=== PATIENT | male | born 1970 | race African-American/Black ===

== ENCOUNTER 2020-09-25 15:02 | Inpatient (IN) | payer MEDICAID, OTHER ==
[~2020-09-25] VITALS: Ht 185.4 cm; Wt 83.1 kg
[2020-09-25] MEDS ORDERED: methylPREDNISolone SOD SUCC 125 MG/2 ML VL IV ONE (16:00)
[2020-09-25] MEDS ORDERED: ONDANSETRON HCL 4 MG/2 ML VIAL IV ONE (16:30)
[2020-09-25] MEDS ORDERED: REMDESIVIR PER PHARMACY 0 ML IV SCH (17:00)
[2020-09-25] MEDS ORDERED: AZITHROMYCIN 500MG/ 250ML 250 ML IV ONE (17:00)
[2020-09-25] MEDS ORDERED: MORPHINE SULFATE 4 MG/ML SYR/VIAL IV ONE (17:00)
[2020-09-25] MEDS ORDERED: CHOLECALCIFEROL (VITD3) 2,000 UNIT CAP/TAB PO ONE (17:00)
[2020-09-25] MEDS ORDERED: ZINC SULFATE 220mg CAP or TAB PO ONE (17:00)
[2020-09-25] MEDS ORDERED: ASCORBIC ACID 500 MG TAB PO ONE (17:00)
[2020-09-25 17:20] LABS: Basophils # (auto) 0 10 ^3/uL (0-0.2); Basophils % (auto) 0.4 % (0.0-2.0); Eosinophils # (auto) 0 10 ^3/uL (0-0.8); Hematocrit 43.7 % (41.0-53.0); Lymphocytes # (auto) 0.9 10 ^3/uL (0.4-5.4); Lymphocytes % (auto) 12.5 % (10.0-50.0); Mean Corpuscular Hemoglobin 30.2 pg (28.0-32.0); Mean Corpuscular Hgb Conc. 34.4 g/dL (32.0-36.0); Mean Corpuscular Volume 87.8 fL (80.0-100.0); Monocytes # (auto) 0.7 10 ^3/uL (0-1.3); Monocytes % (auto) 8.9 % (0.0-12.0); Neutrophils # (auto) 5.7 10 ^3/uL (1.6-8.6); Neutrophils % (auto) 78.2 % (37.0-80.0); Nucleated Red Blood Cells % 0.3 %; Platelet Count (auto) 286 10^3/uL (140-450); Red Blood Cells 4.98 10^6/uL (4.5-5.90); Red Cell Distribution Width 12.5 % (11.8-14.3); White Blood Cell 7.3 10^3/uL (4.4-10.8)
[2020-09-25] MEDS ORDERED: PROCHLORPERAZINE EDISYLATE 5 MG/ML 2ML VIAL ONE (17:27)
[2020-09-25] MEDS ORDERED: MORPHINE SULF INJ 2 MG/ML SYRINGE 1ML IV PRN (17:30)
[2020-09-25] MEDS ORDERED: NITROGLYCERIN 0.4 MG SL TAB SL PRN (17:30)
[2020-09-25 17:32] LABS: Albumin 2.8 g/dL (3.4-5.0); Anion Gap 8 (5-15); Blood Urea Nitrogen 31 mg/dL (7-18); Calcium 8.5 mg/dL (8.5-10.1); Carbon Dioxide 27 mmol/L (21-32); Chloride 90 mmol/L (98-107); Potassium 4.8 mmol/L (3.5-5.1); Sodium 125 mmol/L (136-145)
[2020-09-25 17:43] LABS: Alanine Aminotransferase 43 U/L (16-61); Alkaline Phosphatase 92 U/L (45-117); Aspartate Aminotransferase 36 U/L (15-37); Bilirubin, Total 0.6 mg/dL (0.2-1.0); GFR African American 75 mL/min; GFR Non-African American 62 mL/min; Glucose 242 mg/dL (74-106); Total Protein 8.5 g/dL (6.4-8.2)
[2020-09-25 17:45] LABS: CRP High Sensitivity > 19.0 mg/dL (< 0.3)
[2020-09-25] MEDS ORDERED: PROCHLORPERAZINE EDISYLATE 5 MG/ML 2ML VIAL IV ONE (17:45)
[2020-09-25] MEDS ORDERED: PANTOPRAZOLE 40 MG/10 ML VIAL INJ IV ONE ×2 (17:53→18:00)
[2020-09-25 20:00] VITALS: BP 104/69
[2020-09-25] MEDS ORDERED: REMDESIVIR 200 MG in NS 210ml LOADING DOSE ADULT IV ONE (20:00)
[2020-09-26] VITALS: BP 104/69
[2020-09-26] MEDS ORDERED: MORPHINE SULF INJ 2 MG/ML SYRINGE 1ML IV PRN ×2
[2020-09-26] MEDS ORDERED: LORazepam 0.5 MG TAB PO PRN
[2020-09-26] MEDS ORDERED: REMDESIVIR PER PHARMACY 0 ML IV SCH
[2020-09-26] MEDS ORDERED: ONDANSETRON HCL 4 MG/2 ML VIAL IV PRN
[2020-09-26] MEDS ORDERED: NITROGLYCERIN 0.4 MG SL TAB SL PRN
[2020-09-26] MEDS ORDERED: ALUM & MAG HYDROX-SIMETH LIQ(MAALOX) 30 ML PO PRN
[2020-09-26] MEDS ORDERED: hydrALAZINE HCL 20 MG/ML VL IV PRN (00:15)
[2020-09-26] MEDS ORDERED: DEXTROSE (50%) 50ML SYRG IV PRN (00:15)
[2020-09-26] MEDS: HYDROcodone-ACET 5/325MG TAB PO PRN (00:43)
[2020-09-26] MEDS: SODIUM CHLORIDE 0.9% 1,000 ML IV SCH ×2 (02:24→17:10)
[2020-09-26 03:17] LABS: Basophils # (auto) 0 10 ^3/uL (0-0.2); Basophils % (auto) 0.2 % (0.0-2.0); Eosinophils # (auto) 0 10 ^3/uL (0-0.8); Hematocrit 39.2 % (41.0-53.0); Hemoglobin 13.7 g/dL (13.5-17.5); Lymphocytes # (auto) 0.3 10 ^3/uL (0.4-5.4); Lymphocytes % (auto) 7.2 % (10.0-50.0); Mean Corpuscular Hemoglobin 30.9 pg (28.0-32.0); Mean Corpuscular Hgb Conc. 34.9 g/dL (32.0-36.0); Mean Corpuscular Volume 88.5 fL (80.0-100.0); Monocytes # (auto) 0.1 10 ^3/uL (0-1.3); Neutrophils % (auto) 89.6 % (37.0-80.0); Nucleated Red Blood Cells % 0.2 %; Platelet Count (auto) 270 10^3/uL (140-450); Red Blood Cells 4.42 10^6/uL (4.5-5.90); Red Cell Distribution Width 12.8 % (11.8-14.3); White Blood Cell 4.5 10^3/uL (4.4-10.8)
[2020-09-26 03:54] LABS: Albumin 2.5 g/dL (3.4-5.0); BUN/Creatinine Ratio 29.8; Calcium 8.1 mg/dL (8.5-10.1); Magnesium 2.2 mg/dL (1.6-2.6); Potassium 5.1 mmol/L (3.5-5.1)
[2020-09-26 03:55] LABS: Cholesterol 148 mg/dL (< 200)
[2020-09-26 04:00] LABS: HDL Cholesterol 29 mg/dL (40-59); LDL Cholesterol 93 mg/dL (< 100); Triglycerides 132 mg/dL (< 150)
[2020-09-26 04:01] LABS: Bilirubin, Total 0.4 mg/dL (0.2-1.0); Total Protein 7.5 g/dL (6.4-8.2)
[2020-09-26 05:50] LABS: CRP High Sensitivity 21.16 mg/dL (< 0.3)
[2020-09-26] MEDS: BUDESONIDE (INHALATION) 180 MCG IH IN SCH ×2 (06:27→19:18)
[2020-09-26] MEDS: FUROSEMIDE 20 MG/2 ML VIAL IV SCH ×2 (06:28→17:50)
[2020-09-26] MEDS: ACCU-CHEK COMFORT CURVE STRIP VI SCH ×4 (06:29→21:18)
[2020-09-26] MEDS: InsuLIN REG 1unit/0.01ml Soln (100units/ml) SC SCH ×4 (06:32→21:21)
[2020-09-26 08:00] VITALS: BP 116/81
[2020-09-26] MEDS: DexAMETHasone SOD PHOS 10MG/1ML VIAL INJ IV SCH (09:21)
[2020-09-26] MEDS: DOXYCYCLINE 100MG/250ML 250 ML IV SCH ×2 (09:22→21:17)
[2020-09-26] MEDS: POTASSIUM CHL 10 Meq TABLET PO SCH (09:22)
[2020-09-26] MEDS: ZINC SULFATE 220mg CAP or TAB PO SCH (09:22)
[2020-09-26] MEDS: ASPirin 81 mg TAB PO SCH (09:22)
[2020-09-26] MEDS: PANTOPRAZOLE 40 MG/10 ML VIAL INJ IV SCH (09:22)
[2020-09-26] MEDS: CHOLECALCIFEROL (VITD3) 2,000 UNIT CAP/TAB PO SCH (09:23)
[2020-09-26] MEDS: ENOXAPARIN SOD 40 MG/0.4 ML SYRINGE SC SCH ×2 (09:23→21:18)
[2020-09-26] MEDS: ASCORBIC ACID 1,000 MG TAB PO SCH (09:23)
[2020-09-26] MEDS ORDERED: IVERMECTIN 3 MG TAB PO ONE (10:00)
[2020-09-26 10:39] LABS: Basophils # (auto) 0 10 ^3/uL (0-0.2); Basophils % (auto) 0.1 % (0.0-2.0); Eosinophils # (auto) 0 10 ^3/uL (0-0.8); Hematocrit 42.7 % (41.0-53.0); Hemoglobin 14.7 g/dL (13.5-17.5); Lymphocytes # (auto) 0.4 10 ^3/uL (0.4-5.4); Lymphocytes % (auto) 8.1 % (10.0-50.0); Mean Corpuscular Hemoglobin 30.4 pg (28.0-32.0); Mean Corpuscular Hgb Conc. 34.5 g/dL (32.0-36.0); Monocytes # (auto) 0.4 10 ^3/uL (0-1.3); Neutrophils # (auto) 3.7 10 ^3/uL (1.6-8.6); Neutrophils % (auto) 83.8 % (37.0-80.0); Nucleated Red Blood Cells % 0.5 %; Platelet Count (auto) 270 10^3/uL (140-450); Red Blood Cells 4.85 10^6/uL (4.5-5.90); Red Cell Distribution Width 12.7 % (11.8-14.3); White Blood Cell 4.5 10^3/uL (4.4-10.8)
[2020-09-26 11:00] LABS: Potassium 4.9 mmol/L (3.5-5.1)
[2020-09-26 11:05] LABS: Albumin 2.6 g/dL (3.4-5.0); BUN/Creatinine Ratio 29.5; Bilirubin, Total 0.4 mg/dL (0.2-1.0); Calcium 8.3 mg/dL (8.5-10.1); Magnesium 2.6 mg/dL (1.6-2.6); Phosphorus 4.5 mg/dL (2.5-4.90); Total Protein 8.1 g/dL (6.4-8.2)
[2020-09-26 11:59] LABS: INR 0.98 (0.9-1.15); Partial Thromboplastin Time 28.6 sec (23.0-31.2)
[2020-09-26] MEDS: REMDESIVIR 100mg 100 MG in SODIUM CHL 0.9% 230 ML IV SCH (15:39)
[2020-09-26 16:00] VITALS: BP 133/84
[2020-09-26] MEDS: guaiFENesin-DM 100/10mg/5ml SYR PO PRN (17:50)
[2020-09-26] MEDS: ATORVASTATIN 20 MG TAB PO SCH (21:17)
[2020-09-26] MEDS ORDERED: INSULIN LANTUS (GLARGINE) 1 /0.01ml (100units/ml) SC SCH (22:00)
[2020-09-27] VITALS: BP 123/75
[2020-09-27] MEDS: InsuLIN REG 1unit/0.01ml Soln (100units/ml) SC SCH ×4 (06:04→21:44)
[2020-09-27] MEDS: FUROSEMIDE 20 MG/2 ML VIAL IV SCH ×2 (06:15→18:00)
[2020-09-27] MEDS: ACCU-CHEK COMFORT CURVE STRIP VI SCH ×4 (06:15→21:42)
[2020-09-27 07:20] LABS: Albumin 2.5 g/dL (3.4-5.0); Calcium 8.5 mg/dL (8.5-10.1); Potassium 4.6 mmol/L (3.5-5.1)
[2020-09-27 07:23] LABS: BUN/Creatinine Ratio 36.8; Bilirubin, Total 0.5 mg/dL (0.2-1.0); Total Protein 7.7 g/dL (6.4-8.2)
[2020-09-27 08:00] VITALS: BP 119/70
[2020-09-27] MEDS: BUDESONIDE (INHALATION) 180 MCG IH IN SCH ×2 (09:01→18:52)
[2020-09-27] MEDS: SODIUM CHLORIDE 0.9% 1,000 ML IV SCH (09:01)
[2020-09-27] MEDS: DexAMETHasone SOD PHOS 10MG/1ML VIAL INJ IV SCH (09:01)
[2020-09-27] MEDS: DOXYCYCLINE 100MG/250ML 250 ML IV SCH ×2 (09:02→21:41)
[2020-09-27] MEDS: ASPirin 81 mg TAB PO SCH (09:02)
[2020-09-27] MEDS: ZINC SULFATE 220mg CAP or TAB PO SCH (09:02)
[2020-09-27] MEDS: PANTOPRAZOLE 40 MG/10 ML VIAL INJ IV SCH (09:02)
[2020-09-27] MEDS: POTASSIUM CHL 10 Meq TABLET PO SCH (09:03)
[2020-09-27] MEDS: CHOLECALCIFEROL (VITD3) 2,000 UNIT CAP/TAB PO SCH (09:03)
[2020-09-27] MEDS: ENOXAPARIN SOD 40 MG/0.4 ML SYRINGE SC SCH ×2 (09:03→21:42)
[2020-09-27] MEDS: ASCORBIC ACID 1,000 MG TAB PO SCH (09:03)
[2020-09-27] MEDS: REMDESIVIR 100mg 100 MG in SODIUM CHL 0.9% 230 ML IV SCH (14:28)
[2020-09-27 16:00] VITALS: BP 117/68
[2020-09-27] MEDS ORDERED: NITROGLYCERIN 0.4 MG SL TAB SL PRN (18:45)
[2020-09-27] MEDS: guaiFENesin-DM 100/10mg/5ml SYR PO PRN (20:10)
[2020-09-27] MEDS: ATORVASTATIN 20 MG TAB PO SCH (21:41)
[2020-09-27] MEDS ORDERED: INSULIN LANTUS (GLARGINE) 1 /0.01ml (100units/ml) SC SCH (22:00)
[2020-09-27] MEDS: HYDROcodone-ACET 5/325MG TAB PO PRN (22:07)
[2020-09-28] VITALS: BP 133/93
[2020-09-28] MEDS: HYDROcodone-ACET 5/325MG TAB PO PRN (05:00)
[2020-09-28] MEDS: ACCU-CHEK COMFORT CURVE STRIP VI SCH ×4 (06:00→22:00)
[2020-09-28] MEDS: InsuLIN REG 1unit/0.01ml Soln (100units/ml) SC SCH ×4 (06:00→22:37)
[2020-09-28] MEDS: BUDESONIDE (INHALATION) 180 MCG IH IN SCH ×2 (06:27→19:13)
[2020-09-28] MEDS: ALBUTEROL SULF HFA 90MCG INH 200DOSE IN PRN (06:27)
[2020-09-28 07:22] LABS: Albumin 2.3 g/dL (3.4-5.0); Calcium 8.2 mg/dL (8.5-10.1); Potassium 4.1 mmol/L (3.5-5.1)
[2020-09-28 07:25] LABS: BUN/Creatinine Ratio 30.2; Bilirubin, Total 0.7 mg/dL (0.2-1.0); Total Protein 7.1 g/dL (6.4-8.2)
[2020-09-28 08:00] VITALS: BP 104/75
[2020-09-28] MEDS: DOXYCYCLINE 100MG/250ML 250 ML IV SCH (09:26)
[2020-09-28] MEDS: ASPirin 81 mg TAB PO SCH (09:26)
[2020-09-28] MEDS: DexAMETHasone SOD PHOS 10MG/1ML VIAL INJ IV SCH (09:26)
[2020-09-28] MEDS: PANTOPRAZOLE 40 MG/10 ML VIAL INJ IV SCH (09:26)
[2020-09-28] MEDS: ENOXAPARIN SOD 40 MG/0.4 ML SYRINGE SC SCH (09:27)
[2020-09-28] MEDS: ASCORBIC ACID 1,000 MG TAB PO SCH (09:27)
[2020-09-28] MEDS: CHOLECALCIFEROL (VITD3) 2,000 UNIT CAP/TAB PO SCH (09:27)
[2020-09-28] MEDS: ZINC SULFATE 220mg CAP or TAB PO SCH (09:27)
[2020-09-28] MEDS ORDERED: ALBUMIN 25% 100 ML IV ONE (11:30)
[2020-09-28] MEDS: ENOXAPARIN SOD 80 MG/0.8ML SYRINGE SC SCH (12:00)
[2020-09-28] MEDS: SODIUM CHLORIDE 0.9% 1,000 ML IV SCH (12:28)
[2020-09-28] MEDS: ALBUMIN 25% 50 ML IV SCH ×2 (15:23→22:53)
[2020-09-28 16:00] VITALS: BP 118/67
[2020-09-28] MEDS: REMDESIVIR 100mg 100 MG in SODIUM CHL 0.9% 230 ML IV SCH (16:20)
[2020-09-28] MEDS: FUROSEMIDE 20 MG TAB PO SCH (18:18)
[2020-09-28] MEDS: guaiFENesin-DM 100/10mg/5ml SYR PO PRN (18:52)
[2020-09-28] MEDS ORDERED: INSULIN LANTUS (GLARGINE) 1 /0.01ml (100units/ml) SC SCH (22:00)
[2020-09-28] MEDS: ATORVASTATIN 20 MG TAB PO SCH (22:33)
[2020-09-29] VITALS: BP 130/75
[2020-09-29] MEDS: ENOXAPARIN SOD 80 MG/0.8ML SYRINGE SC SCH ×3 (00:16→22:32)
[2020-09-29] MEDS: DOXYCYCLINE 100MG/250ML 250 ML IV SCH ×3 (00:16→22:31)
[2020-09-29] MEDS: ALBUMIN 25% 50 ML IV SCH (04:33)
[2020-09-29 06:01] LABS: Basophils # (auto) 0 10 ^3/uL (0-0.2); Basophils % (auto) 0.1 % (0.0-2.0); Eosinophils # (auto) 0 10 ^3/uL (0-0.8); Eosinophils % (auto) 0.8 % (0.0-7.0); Hematocrit 37.9 % (41.0-53.0); Hemoglobin 12.8 g/dL (13.5-17.5); Lymphocytes # (auto) 0.5 10 ^3/uL (0.4-5.4); Lymphocytes % (auto) 9.9 % (10.0-50.0); Mean Corpuscular Hemoglobin 29.8 pg (28.0-32.0); Mean Corpuscular Hgb Conc. 33.6 g/dL (32.0-36.0); Mean Corpuscular Volume 88.7 fL (80.0-100.0); Monocytes # (auto) 0.5 10 ^3/uL (0-1.3); Monocytes % (auto) 9.6 % (0.0-12.0); Neutrophils # (auto) 4.2 10 ^3/uL (1.6-8.6); Neutrophils % (auto) 79.6 % (37.0-80.0); Platelet Count (auto) 296 10^3/uL (140-450); Red Blood Cells 4.27 10^6/uL (4.5-5.90); Red Cell Distribution Width 12.9 % (11.8-14.3); White Blood Cell 5.3 10^3/uL (4.4-10.8)
[2020-09-29 06:24] LABS: INR 1.15 (0.9-1.15); Partial Thromboplastin Time 31.1 sec (23.0-31.2)
[2020-09-29 06:25] LABS: Potassium 4.2 mmol/L (3.5-5.1)
[2020-09-29] MEDS: ACCU-CHEK COMFORT CURVE STRIP VI SCH ×4 (06:28→22:00)
[2020-09-29] MEDS: InsuLIN REG 1unit/0.01ml Soln (100units/ml) SC SCH ×4 (06:29→22:24)
[2020-09-29 06:40] LABS: Albumin 2.8 g/dL (3.4-5.0); BUN/Creatinine Ratio 25.3; Bilirubin, Total 0.6 mg/dL (0.2-1.0); Calcium 8.7 mg/dL (8.5-10.1); Magnesium 2.6 mg/dL (1.6-2.6); Phosphorus 2.6 mg/dL (2.5-4.90); Total Protein 7.2 g/dL (6.4-8.2)
[2020-09-29] MEDS: FUROSEMIDE 20 MG TAB PO SCH ×2 (06:42→18:00)
[2020-09-29 08:00] VITALS: BP 144/85
[2020-09-29] MEDS: DexAMETHasone SOD PHOS 10MG/1ML VIAL INJ IV SCH (08:56)
[2020-09-29] MEDS: SODIUM CHLORIDE 0.9% 1,000 ML IV SCH (08:56)
[2020-09-29] MEDS: ASPirin 81 mg TAB PO SCH (08:57)
[2020-09-29] MEDS: ASCORBIC ACID 1,000 MG TAB PO SCH (08:57)
[2020-09-29] MEDS: PANTOPRAZOLE 40 MG/10 ML VIAL INJ IV SCH (08:57)
[2020-09-29] MEDS: CHOLECALCIFEROL (VITD3) 2,000 UNIT CAP/TAB PO SCH (08:57)
[2020-09-29] MEDS: ZINC SULFATE 220mg CAP or TAB PO SCH (08:57)
[2020-09-29] MEDS: THROAT LOZENGES(CEPASTAT) MT PRN ×2 (09:13→16:51)
[2020-09-29] MEDS: BUDESONIDE (INHALATION) 180 MCG IH IN SCH ×2 (10:00→20:25)
[2020-09-29] MEDS ORDERED: IOHEXOL 350 MG/ML 100ML IJ ONE ×2 (15:17→16:14)
[2020-09-29 16:11] VITALS: BP 128/82
[2020-09-29] MEDS: REMDESIVIR 100mg 100 MG in SODIUM CHL 0.9% 230 ML IV SCH (16:52)
[2020-09-29] MEDS: guaiFENesin-DM 100/10mg/5ml SYR PO PRN (19:00)
[2020-09-29] MEDS: ALBUTEROL SULF HFA 90MCG INH 200DOSE IN PRN (20:26)
[2020-09-29] MEDS: INSULIN LANTUS (GLARGINE) 1 /0.01ml (100units/ml) SC SCH (22:24)
[2020-09-29] MEDS: ATORVASTATIN 20 MG TAB PO SCH (22:32)
[2020-09-30] VITALS: BP 126/76
[2020-09-30] MEDS: SODIUM CHLORIDE 0.9% 1,000 ML IV SCH (03:10)
[2020-09-30 05:20] LABS: Basophils # (auto) 0 10 ^3/uL (0-0.2); Basophils % (auto) 0.2 % (0.0-2.0); Eosinophils # (auto) 0.1 10 ^3/uL (0-0.8); Eosinophils % (auto) 1.6 % (0.0-7.0); Hematocrit 37.8 % (41.0-53.0); Hemoglobin 12.9 g/dL (13.5-17.5); Lymphocytes # (auto) 0.6 10 ^3/uL (0.4-5.4); Lymphocytes % (auto) 7.9 % (10.0-50.0); Mean Corpuscular Hemoglobin 30.2 pg (28.0-32.0); Mean Corpuscular Hgb Conc. 34.2 g/dL (32.0-36.0); Mean Corpuscular Volume 88.2 fL (80.0-100.0); Monocytes # (auto) 0.7 10 ^3/uL (0-1.3); Neutrophils # (auto) 5.8 10 ^3/uL (1.6-8.6); Neutrophils % (auto) 80.3 % (37.0-80.0); Nucleated Red Blood Cells % 0.1 %; Platelet Count (auto) 299 10^3/uL (140-450); Red Blood Cells 4.28 10^6/uL (4.5-5.90); Red Cell Distribution Width 12.8 % (11.8-14.3); White Blood Cell 7.2 10^3/uL (4.4-10.8)
[2020-09-30 05:36] LABS: INR 1.19 (0.9-1.15); Partial Thromboplastin Time 35.3 sec (23.0-31.2)
[2020-09-30 05:40] LABS: Albumin 2.6 g/dL (3.4-5.0); Calcium 8.5 mg/dL (8.5-10.1); Magnesium 2.2 mg/dL (1.6-2.6); Potassium 4.1 mmol/L (3.5-5.1)
[2020-09-30 05:48] LABS: BUN/Creatinine Ratio 27.4; Bilirubin, Total 0.6 mg/dL (0.2-1.0); Phosphorus 2.9 mg/dL (2.5-4.90)
[2020-09-30] MEDS: InsuLIN REG 1unit/0.01ml Soln (100units/ml) SC SCH ×4 (07:00→22:00)
[2020-09-30] MEDS: ACCU-CHEK COMFORT CURVE STRIP VI SCH ×4 (07:06→22:00)
[2020-09-30] MEDS: FUROSEMIDE 20 MG TAB PO SCH ×2 (07:06→18:29)
[2020-09-30] MEDS: BUDESONIDE (INHALATION) 180 MCG IH IN SCH ×2 (07:15→19:20)
[2020-09-30 07:59] VITALS: BP 135/86
[2020-09-30] MEDS: PANTOPRAZOLE 40 MG/10 ML VIAL INJ IV SCH (09:43)
[2020-09-30] MEDS: DexAMETHasone SOD PHOS 10MG/1ML VIAL INJ IV SCH (09:43)
[2020-09-30] MEDS: DOXYCYCLINE 100MG/250ML 250 ML IV SCH ×2 (09:43→22:00)
[2020-09-30] MEDS: CHOLECALCIFEROL (VITD3) 2,000 UNIT CAP/TAB PO SCH (09:44)
[2020-09-30] MEDS: ZINC SULFATE 220mg CAP or TAB PO SCH (09:44)
[2020-09-30] MEDS: ASCORBIC ACID 1,000 MG TAB PO SCH (09:44)
[2020-09-30] MEDS: THROAT LOZENGES(CEPASTAT) MT PRN ×2 (09:54→23:27)
[2020-09-30] MEDS: ENOXAPARIN SOD 80 MG/0.8ML SYRINGE SC SCH (11:40)
[2020-09-30 16:00] VITALS: BP 124/75
[2020-09-30] MEDS: ALBUTEROL SULF HFA 90MCG INH 200DOSE IN PRN (19:43)
[2020-09-30] MEDS: ATORVASTATIN 20 MG TAB PO SCH (22:00)
[2020-09-30] MEDS: APIXABAN 5 MG TAB PO SCH (22:00)
[2020-09-30] MEDS: INSULIN LANTUS (GLARGINE) 1 /0.01ml (100units/ml) SC SCH (23:26)
[2020-10-01] VITALS: BP 131/80
[2020-10-01] MEDS: InsuLIN REG 1unit/0.01ml Soln (100units/ml) SC SCH ×4 (05:31→22:20)
[2020-10-01] MEDS: ACCU-CHEK COMFORT CURVE STRIP VI SCH ×4 (05:33→22:21)
[2020-10-01] MEDS: FUROSEMIDE 20 MG TAB PO SCH ×2 (05:44→17:51)
[2020-10-01] MEDS: BUDESONIDE (INHALATION) 180 MCG IH IN SCH ×2 (06:47→18:57)
[2020-10-01 08:00] VITALS: BP 119/75
[2020-10-01] MEDS: PANTOPRAZOLE 40 MG/10 ML VIAL INJ IV SCH (09:16)
[2020-10-01] MEDS: DexAMETHasone SOD PHOS 10MG/1ML VIAL INJ IV SCH (09:16)
[2020-10-01] MEDS: APIXABAN 5 MG TAB PO SCH ×2 (09:16→22:15)
[2020-10-01] MEDS: ZINC SULFATE 220mg CAP or TAB PO SCH (09:16)
[2020-10-01] MEDS: ASCORBIC ACID 1,000 MG TAB PO SCH (09:17)
[2020-10-01] MEDS: CHOLECALCIFEROL (VITD3) 2,000 UNIT CAP/TAB PO SCH (09:17)
[2020-10-01] MEDS: DOCUSATE SOD 100 MG CAP PO PRN (09:17)
[2020-10-01] MEDS: THROAT LOZENGES(CEPASTAT) MT PRN (09:17)
[2020-10-01] MEDS: guaiFENesin-DM 100/10mg/5ml SYR PO PRN (09:54)
[2020-10-01 15:45] VITALS: BP 141/84
[2020-10-01] MEDS: ALBUTEROL SULF HFA 90MCG INH 200DOSE IN PRN (18:57)
[2020-10-01] MEDS: ATORVASTATIN 20 MG TAB PO SCH (22:17)
[2020-10-01] MEDS: INSULIN LANTUS (GLARGINE) 1 /0.01ml (100units/ml) SC SCH (22:21)
[2020-10-02] VITALS: BP 116/78
[2020-10-02] MEDS: FUROSEMIDE 20 MG TAB PO SCH ×2 (05:41→17:55)
[2020-10-02] MEDS: InsuLIN REG 1unit/0.01ml Soln (100units/ml) SC SCH ×4 (06:10→22:50)
[2020-10-02] MEDS: ALBUTEROL SULF HFA 90MCG INH 200DOSE IN PRN ×2 (06:47→20:39)
[2020-10-02] MEDS: BUDESONIDE (INHALATION) 180 MCG IH IN SCH ×2 (06:47→18:12)
[2020-10-02] MEDS: ACCU-CHEK COMFORT CURVE STRIP VI SCH ×4 (07:00→22:53)
[2020-10-02 08:00] VITALS: BP 120/74
[2020-10-02] MEDS: PANTOPRAZOLE 40 MG/10 ML VIAL INJ IV SCH (09:20)
[2020-10-02] MEDS: ZINC SULFATE 220mg CAP or TAB PO SCH (09:20)
[2020-10-02] MEDS: APIXABAN 5 MG TAB PO SCH ×2 (09:20→22:44)
[2020-10-02] MEDS: DexAMETHasone SOD PHOS 10MG/1ML VIAL INJ IV SCH (09:20)
[2020-10-02] MEDS: CHOLECALCIFEROL (VITD3) 2,000 UNIT CAP/TAB PO SCH (09:21)
[2020-10-02] MEDS: ASCORBIC ACID 1,000 MG TAB PO SCH (09:21)
[2020-10-02] MEDS: THROAT LOZENGES(CEPASTAT) MT PRN ×2 (10:11→20:08)
[2020-10-02] MEDS: DOCUSATE SOD 100 MG CAP PO PRN ×2 (10:11→20:08)
[2020-10-02 15:55] VITALS: BP 120/65
[2020-10-02] MEDS: ATORVASTATIN 20 MG TAB PO SCH (22:44)
[2020-10-02] MEDS: INSULIN LANTUS (GLARGINE) 1 /0.01ml (100units/ml) SC SCH (22:52)
[2020-10-03] VITALS: BP 110/75
[2020-10-03] MEDS: FUROSEMIDE 20 MG TAB PO SCH ×2 (05:55→18:36)
[2020-10-03] MEDS: BUDESONIDE (INHALATION) 180 MCG IH IN SCH ×2 (06:35→19:34)
[2020-10-03] MEDS: ACCU-CHEK COMFORT CURVE STRIP VI SCH ×4 (06:37→21:50)
[2020-10-03] MEDS: InsuLIN REG 1unit/0.01ml Soln (100units/ml) SC SCH ×4 (06:37→22:29)
[2020-10-03 07:32] VITALS: BP 99/60
[2020-10-03] MEDS: CHOLECALCIFEROL (VITD3) 2,000 UNIT CAP/TAB PO SCH (10:00)
[2020-10-03] MEDS: ASCORBIC ACID 1,000 MG TAB PO SCH (10:40)
[2020-10-03] MEDS: DexAMETHasone SOD PHOS 10MG/1ML VIAL INJ IV SCH (10:40)
[2020-10-03] MEDS: PANTOPRAZOLE 40 MG/10 ML VIAL INJ IV SCH (10:40)
[2020-10-03] MEDS: APIXABAN 5 MG TAB PO SCH ×2 (10:41→22:18)
[2020-10-03] MEDS: ZINC SULFATE 220mg CAP or TAB PO SCH (12:04)
[2020-10-03 15:43] VITALS: BP 102/70
[2020-10-03] MEDS ORDERED: guaiFENesin-DM 100/10mg/5ml SYR PO PRN (17:00)
[2020-10-03] MEDS: ALBUTEROL SULF HFA 90MCG INH 200DOSE IN PRN (19:34)
[2020-10-03] MEDS: THROAT LOZENGES(CEPASTAT) MT PRN (21:13)
[2020-10-03] MEDS: ATORVASTATIN 20 MG TAB PO SCH (22:18)
[2020-10-03] MEDS: INSULIN LANTUS (GLARGINE) 1 /0.01ml (100units/ml) SC SCH (22:18)
[2020-10-03] MEDS: HYDROcodone-ACET 5/325MG TAB PO PRN (23:18)
[2020-10-04 00:06] VITALS: BP 97/63
[2020-10-04] MEDS: FUROSEMIDE 20 MG TAB PO SCH ×2 (05:45→18:00)
[2020-10-04 06:03] LABS: Basophils # (auto) 0 10 ^3/uL (0-0.2); Basophils % (auto) 0.3 % (0.0-2.0); Eosinophils # (auto) 0.1 10 ^3/uL (0-0.8); Eosinophils % (auto) 1.2 % (0.0-7.0); Hematocrit 36.9 % (41.0-53.0); Hemoglobin 12.6 g/dL (13.5-17.5); Lymphocytes # (auto) 1.1 10 ^3/uL (0.4-5.4); Lymphocytes % (auto) 11.8 % (10.0-50.0); Mean Corpuscular Hemoglobin 30.3 pg (28.0-32.0); Mean Corpuscular Hgb Conc. 34.2 g/dL (32.0-36.0); Mean Corpuscular Volume 88.8 fL (80.0-100.0); Monocytes # (auto) 1.1 10 ^3/uL (0-1.3); Neutrophils # (auto) 6.8 10 ^3/uL (1.6-8.6); Neutrophils % (auto) 74.7 % (37.0-80.0); Nucleated Red Blood Cells % 0.1 %; Platelet Count (auto) 359 10^3/uL (140-450); Red Blood Cells 4.16 10^6/uL (4.5-5.90); Red Cell Distribution Width 12.6 % (11.8-14.3); White Blood Cell 9.1 10^3/uL (4.4-10.8)
[2020-10-04] MEDS: ACCU-CHEK COMFORT CURVE STRIP VI SCH ×4 (06:15→21:34)
[2020-10-04 06:29] LABS: Potassium 4.5 mmol/L (3.5-5.1)
[2020-10-04 06:32] LABS: INR 1.08 (0.9-1.15); Partial Thromboplastin Time 26.6 sec (23.0-31.2)
[2020-10-04] MEDS: InsuLIN REG 1unit/0.01ml Soln (100units/ml) SC SCH ×4 (06:34→21:42)
[2020-10-04 06:47] LABS: Albumin 2.6 g/dL (3.4-5.0); BUN/Creatinine Ratio 28.7; Calcium 9.3 mg/dL (8.5-10.1); Magnesium 1.9 mg/dL (1.6-2.6)
[2020-10-04 06:56] LABS: Bilirubin, Total 0.5 mg/dL (0.2-1.0); Phosphorus 3.4 mg/dL (2.5-4.90); Total Protein 6.7 g/dL (6.4-8.2)
[2020-10-04] MEDS: ALBUTEROL SULF HFA 90MCG INH 200DOSE IN PRN ×2 (07:10→22:50)
[2020-10-04] MEDS: BUDESONIDE (INHALATION) 180 MCG IH IN SCH ×2 (07:10→22:00)
[2020-10-04 07:56] VITALS: BP 119/73
[2020-10-04] MEDS: ZINC SULFATE 220mg CAP or TAB PO SCH (11:02)
[2020-10-04] MEDS: CHOLECALCIFEROL (VITD3) 2,000 UNIT CAP/TAB PO SCH (11:02)
[2020-10-04] MEDS: PANTOPRAZOLE 40 MG/10 ML VIAL INJ IV SCH (11:03)
[2020-10-04] MEDS: APIXABAN 5 MG TAB PO SCH ×2 (11:03→21:38)
[2020-10-04] MEDS: ASCORBIC ACID 1,000 MG TAB PO SCH (11:03)
[2020-10-04] MEDS: DexAMETHasone SOD PHOS 10MG/1ML VIAL INJ IV SCH (11:04)
[2020-10-04 15:39] VITALS: BP 107/74
[2020-10-04] MEDS: THROAT LOZENGES(CEPASTAT) MT PRN (20:05)
[2020-10-04] MEDS: ATORVASTATIN 20 MG TAB PO SCH (21:38)
[2020-10-04] MEDS: INSULIN LANTUS (GLARGINE) 1 /0.01ml (100units/ml) SC SCH (21:42)
[2020-10-05] VITALS: BP 123/71
[2020-10-05] MEDS: ACCU-CHEK COMFORT CURVE STRIP VI SCH ×4 (05:58→22:01)
[2020-10-05] MEDS: InsuLIN REG 1unit/0.01ml Soln (100units/ml) SC SCH ×4 (06:10→22:13)
[2020-10-05] MEDS: FUROSEMIDE 20 MG TAB PO SCH ×2 (06:10→17:55)
[2020-10-05 08:00] VITALS: BP 100/69
[2020-10-05] MEDS: ASCORBIC ACID 1,000 MG TAB PO SCH (09:41)
[2020-10-05] MEDS: ZINC SULFATE 220mg CAP or TAB PO SCH (09:41)
[2020-10-05] MEDS: APIXABAN 5 MG TAB PO SCH ×2 (09:42→22:01)
[2020-10-05] MEDS: DexAMETHasone SOD PHOS 10MG/1ML VIAL INJ IV SCH (09:42)
[2020-10-05] MEDS: PANTOPRAZOLE 40 MG/10 ML VIAL INJ IV SCH (09:42)
[2020-10-05] MEDS: CHOLECALCIFEROL (VITD3) 2,000 UNIT CAP/TAB PO SCH (09:43)
[2020-10-05 16:00] VITALS: BP 114/73
[2020-10-05] MEDS: DOCUSATE SOD 100 MG CAP PO PRN (17:55)
[2020-10-05] MEDS: ALBUTEROL SULF HFA 90MCG INH 200DOSE IN PRN (21:42)
[2020-10-05] MEDS: BUDESONIDE (INHALATION) 180 MCG IH IN SCH (21:42)
[2020-10-05] MEDS: ATORVASTATIN 20 MG TAB PO SCH (22:01)
[2020-10-05] MEDS: INSULIN LANTUS (GLARGINE) 1 /0.01ml (100units/ml) SC SCH (22:13)
[2020-10-06] VITALS: BP 105/74
[2020-10-06] MEDS: ACCU-CHEK COMFORT CURVE STRIP VI SCH ×2 (05:46→12:32)
[2020-10-06] MEDS: FUROSEMIDE 20 MG TAB PO SCH (05:47)
[2020-10-06] MEDS: BUDESONIDE (INHALATION) 180 MCG IH IN SCH (06:35)
[2020-10-06] MEDS: ALBUTEROL SULF HFA 90MCG INH 200DOSE IN PRN (06:35)
[2020-10-06] MEDS: InsuLIN REG 1unit/0.01ml Soln (100units/ml) SC SCH ×2 (06:41→12:32)
[2020-10-06 08:00] VITALS: BP 110/67
[2020-10-06] MEDS: ASCORBIC ACID 1,000 MG TAB PO SCH (09:32)
[2020-10-06] MEDS: PANTOPRAZOLE 40 MG/10 ML VIAL INJ IV SCH (09:32)
[2020-10-06] MEDS: DexAMETHasone SOD PHOS 10MG/1ML VIAL INJ IV SCH (09:32)
[2020-10-06] MEDS: CHOLECALCIFEROL (VITD3) 2,000 UNIT CAP/TAB PO SCH (09:32)
[2020-10-06] MEDS: ZINC SULFATE 220mg CAP or TAB PO SCH (09:33)
[2020-10-06] MEDS: APIXABAN 5 MG TAB PO SCH (09:33)
[2020-10-06 13:53] VITALS: BP 110/67
[2020-10-06] MEDS: DOCUSATE SOD 100 MG CAP PO PRN (15:47)
[2020-10-07] MEDS ORDERED: APIXABAN 5 MG TAB PO SCH (22:00)
== END 2020-10-06 16:00 | disposition home or self-care (01) | DRG 720 ==
LOC: ER 15:02 → TELE 15:03 → TELE-WESTW 19:40
PROVIDERS: ADMIT Hospitalist; ATTEND Family Medicine
PROC: XW033E5 Introduction of Remdesivir Anti-infective into Peripheral Vein, Percutaneous Approach, New Technology Group 5 (ICD-10-PCS; principal; 2020-09-25)
DX: A41.89 Other specified sepsis (principal); U07.1 COVID-19; J96.01 Acute respiratory failure with hypoxia; I26.99 Other pulmonary embolism without acute cor pulmonale; J12.82 Pneumonia due to coronavirus disease 2019; R65.20 Severe sepsis without septic shock; E44.0 Moderate protein-calorie malnutrition; E87.1 Hypo-osmolality and hyponatremia; R19.7 Diarrhea, unspecified; E11.65 Type 2 diabetes mellitus with hyperglycemia; E88.09 Other disorders of plasma-protein metabolism, not elsewhere classified; E55.9 Vitamin D deficiency, unspecified; E78.5 Hyperlipidemia, unspecified; I10 Essential (primary) hypertension; K21.9 Gastro-esophageal reflux disease without esophagitis; K29.70 Gastritis, unspecified, without bleeding; Z79.01 Long term (current) use of anticoagulants; Z79.899 Other long term (current) drug therapy; Z79.891 Long term (current) use of opiate analgesic; Z79.4 Long term (current) use of insulin
CPT/HCPCS: 36415; 71045; 71275; 74176; 80053; 80061; 82306; 82728; 82962; 83036; 83605; 83615; 83690; 83735; 83880; 84100; 84443; 84484; 85025; 85379; 85610; 85730; 86141; 86850; 86900; 86901; 87040; 87426; 87804; 93005; 93970; 94640; 96365; 96375; C9113; G0378; J1100; J1815; J2405; J3490; P9047

== ENCOUNTER 2020-10-08 12:04 | Emergency (ER) | payer SELFPAY ==
[~2020-10-08] VITALS: Ht 182.9 cm; Wt 81.6 kg
[2020-10-08] MEDS ORDERED: InsuLIN REG 1unit/0.01ml Soln (100units/ml) IV ONE (12:15)
[2020-10-08] MEDS ORDERED: SODIUM CHLORIDE 0.9% 1,000 ML IV ONE ×2 (12:15)
[2020-10-08 12:55] LABS: Basophils # (auto) 0.1 10 ^3/uL (0-0.2); Eosinophils # (auto) 0.1 10 ^3/uL (0-0.8); Eosinophils % (auto) 1.8 % (0.0-7.0); Hematocrit 38.1 % (41.0-53.0); Hemoglobin 12.7 g/dL (13.5-17.5); Lymphocytes # (auto) 1.1 10 ^3/uL (0.4-5.4); Lymphocytes % (auto) 13.5 % (10.0-50.0); Mean Corpuscular Hemoglobin 30.1 pg (28.0-32.0); Mean Corpuscular Hgb Conc. 33.3 g/dL (32.0-36.0); Mean Corpuscular Volume 90.4 fL (80.0-100.0); Monocytes # (auto) 0.8 10 ^3/uL (0-1.3); Monocytes % (auto) 9.8 % (0.0-12.0); Neutrophils # (auto) 6.3 10 ^3/uL (1.6-8.6); Neutrophils % (auto) 73.9 % (37.0-80.0); Platelet Count (auto) 374 10^3/uL (140-450); Red Blood Cells 4.21 10^6/uL (4.5-5.90); Red Cell Distribution Width 12.9 % (11.8-14.3); White Blood Cell 8.5 10^3/uL (4.4-10.8)
[2020-10-08 13:04] LABS: Albumin 2.7 g/dL (3.4-5.0); Anion Gap 6 (5-15); Blood Urea Nitrogen 29 mg/dL (7-18); Calcium 8.5 mg/dL (8.5-10.1); Carbon Dioxide 29 mmol/L (21-32); Chloride 98 mmol/L (98-107); Glucose 298 mg/dL (74-106); Potassium 4.2 mmol/L (3.5-5.1); Sodium 133 mmol/L (136-145)
[2020-10-08 13:09] LABS: Alanine Aminotransferase 31 U/L (16-61); Alkaline Phosphatase 67 U/L (45-117); Aspartate Aminotransferase 12 U/L (15-37); BUN/Creatinine Ratio 25.7; Bilirubin, Total 0.4 mg/dL (0.2-1.0); GFR African American 88 mL/min; GFR Non-African American 72 mL/min; Total Protein 7.2 g/dL (6.4-8.2)
[2020-10-08 13:51] VITALS: BP 138/72
== END 2020-10-08 13:54 | disposition left against medical advice (07) ==
LOC: ER 12:04
DX: E11.65 Type 2 diabetes mellitus with hyperglycemia (principal); Z88.6 Allergy status to analgesic agent
CPT/HCPCS: 36415; 71046; 80053; 84484; 85025; 96360; 99284; J7030

== ENCOUNTER 2020-10-21 09:36 | Inpatient (IN) | payer MEDICAID, OTHER ==
[~2020-10-21] VITALS: Ht 182.9 cm; Wt 86.1 kg
[2020-10-21 10:52] LABS: Basophils # (auto) 0.1 10 ^3/uL (0-0.2); Basophils % (auto) 1.3 % (0.0-2.0); Eosinophils # (auto) 0.1 10 ^3/uL (0-0.8); Eosinophils % (auto) 1.3 % (0.0-7.0); Hematocrit 31.5 % (41.0-53.0); Hemoglobin 10.4 g/dL (13.5-17.5); Lymphocytes # (auto) 1.3 10 ^3/uL (0.4-5.4); Lymphocytes % (auto) 15.4 % (10.0-50.0); Mean Corpuscular Volume 90.9 fL (80.0-100.0); Monocytes # (auto) 0.7 10 ^3/uL (0-1.3); Monocytes % (auto) 8.2 % (0.0-12.0); Neutrophils # (auto) 6.1 10 ^3/uL (1.6-8.6); Neutrophils % (auto) 73.8 % (37.0-80.0); Red Blood Cells 3.46 10^6/uL (4.5-5.90); Red Cell Distribution Width 13.4 % (11.8-14.3); White Blood Cell 8.2 10^3/uL (4.4-10.8)
[2020-10-21 11:06] LABS: Albumin 3.1 g/dL (3.4-5.0); Anion Gap 5 (5-15); Blood Urea Nitrogen 19 mg/dL (7-18); Calcium 8.5 mg/dL (8.5-10.1); Carbon Dioxide 28 mmol/L (21-32); Chloride 104 mmol/L (98-107); Glucose 178 mg/dL (74-106); Magnesium 2.1 mg/dL (1.6-2.6); Potassium 4.7 mmol/L (3.5-5.1); Sodium 137 mmol/L (136-145)
[2020-10-21 11:13] LABS: Alanine Aminotransferase 37 U/L (16-61); Alkaline Phosphatase 66 U/L (45-117); Aspartate Aminotransferase 28 U/L (15-37); Bilirubin, Total 0.5 mg/dL (0.2-1.0); GFR African American 101 mL/min; GFR Non-African American 83 mL/min
[2020-10-21] MEDS ORDERED: levoFLOXacin 750MG 150 ML IV ONE (11:15)
[2020-10-21] MEDS ORDERED: MORPHINE SULFATE INJECTION 2 MG/ML SYRG IV ONE (12:00)
[2020-10-21 12:14] LABS: Urine Bacteria NONE SEEN /hpf (None Seen); Urine Blood Negative /uL (Negative); Urine Specific Gravity 1.007 (1.001-1.035); Urine WBC 1 /hpf (0 - 3)
[2020-10-21] MEDS ORDERED: ONDANSETRON HCL 4 MG/2 ML VIAL IV PRN (13:30)
[2020-10-21] MEDS ORDERED: MORPHINE SULFATE INJECTION 2 MG/ML SYRG IV PRN ×2 (13:30)
[2020-10-21] MEDS ORDERED: methylPREDNISolone SOD SUCC 125 MG/2 ML VL IV ONE (13:30)
[2020-10-21] MEDS ORDERED: DEXTROSE (50%) 50ML SYRG IV PRN (13:30)
[2020-10-21] MEDS ORDERED: HYDROcodone-ACET 5/325MG TAB PO PRN (13:30)
[2020-10-21] MEDS ORDERED: ACETAMINOPHEN 325 MG TAB PO PRN (13:30)
[2020-10-21] MEDS ORDERED: NITROGLYCERIN 0.4 MG SL TAB SL PRN (13:30)
[2020-10-21] MEDS ORDERED: methylPREDNISolone SOD SUCC 125 MG/2 ML VL ONE (13:43)
[2020-10-21 14:14] VITALS: BP 126/79
[2020-10-21 14:19] LABS: CRP High Sensitivity 2.86 mg/dL (< 0.3)
[2020-10-21 17:18] VITALS: BP 150/98
[2020-10-21] MEDS: ACCU-CHEK COMFORT CURVE STRIP VI SCH ×2 (17:25→22:26)
[2020-10-21] MEDS: InsuLIN REG 1unit/0.01ml Soln (100units/ml) SC SCH ×2 (17:36→22:28)
[2020-10-21] MEDS ORDERED: APIX5TAB PO (18:24)
[2020-10-21] MEDS ORDERED: ALBUAER3 IN (18:24)
[2020-10-21] MEDS: BUDESONIDE (INHALATION) 180 MCG IH IN SCH (19:38)
[2020-10-21] MEDS: ALBUTEROL SULF HFA 90MCG INH 200DOSE IN PRN (20:11)
[2020-10-21 22:00] VITALS: BP 150/99
[2020-10-21] MEDS: APIXABAN 5 MG TAB PO SCH (22:27)
[2020-10-22] VITALS (7 sets, daily range): BP systolic 135–145; BP diastolic 86–98
[2020-10-22 06:30] LABS: Basophils # (auto) 0.1 10 ^3/uL (0-0.2); Basophils % (auto) 1.3 % (0.0-2.0); Eosinophils # (auto) 0 10 ^3/uL (0-0.8); Lymphocytes # (auto) 0.9 10 ^3/uL (0.4-5.4); Lymphocytes % (auto) 14.8 % (10.0-50.0); Mean Corpuscular Hemoglobin 30.8 pg (28.0-32.0); Mean Corpuscular Hgb Conc. 34.2 g/dL (32.0-36.0); Monocytes # (auto) 0.5 10 ^3/uL (0-1.3); Monocytes % (auto) 7.9 % (0.0-12.0); Neutrophils # (auto) 4.8 10 ^3/uL (1.6-8.6); Nucleated Red Blood Cells % 0.2 %; Red Blood Cells 3.56 10^6/uL (4.5-5.90); Red Cell Distribution Width 13.2 % (11.8-14.3); White Blood Cell 6.3 10^3/uL (4.4-10.8)
[2020-10-22] MEDS: ACCU-CHEK COMFORT CURVE STRIP VI SCH ×4 (06:31→22:00)
[2020-10-22] MEDS: InsuLIN REG 1unit/0.01ml Soln (100units/ml) SC SCH ×4 (06:34→23:36)
[2020-10-22 06:46] LABS: Albumin 2.8 g/dL (3.4-5.0); Calcium 8.5 mg/dL (8.5-10.1)
[2020-10-22 06:49] LABS: BUN/Creatinine Ratio 18.1; Bilirubin, Total 0.4 mg/dL (0.2-1.0); Total Protein 7.4 g/dL (6.4-8.2)
[2020-10-22] MEDS: BUDESONIDE (INHALATION) 180 MCG IH IN SCH ×2 (07:58→19:36)
[2020-10-22] MEDS ORDERED: INSULIN LANTUS (GLARGINE) 1 /0.01ml (100units/ml) SC SCH (10:00)
[2020-10-22] MEDS ORDERED: ZINC SULFATE 220mg CAP or TAB PO SCH (10:00)
[2020-10-22] MEDS ORDERED: ASCORBIC ACID 1,000 MG TAB PO SCH (10:00)
[2020-10-22] MEDS: FAMOTIDINE 20 MG TAB PO SCH (10:34)
[2020-10-22] MEDS: APIXABAN 5 MG TAB PO SCH ×2 (10:34→22:11)
[2020-10-22] MEDS: CHOLECALCIFEROL (VITD3) 2,000 UNIT CAP/TAB PO SCH (10:34)
[2020-10-22] MEDS ORDERED: INSULIN LANTUS (GLARGINE) 1 /0.01ml (100units/ml) SC ONE (11:45)
[2020-10-22] MEDS ORDERED: FUROSEMIDE 40 MG TAB PO ONE (11:45)
[2020-10-22] MEDS: ALBUTEROL SULF HFA 90MCG INH 200DOSE IN PRN (23:17)
[2020-10-23] MEDS ORDERED: THROAT LOZENGES(CEPASTAT) MT PRN (00:30)
[2020-10-23 05:18] VITALS: BP 137/90
[2020-10-23] MEDS: ACCU-CHEK COMFORT CURVE STRIP VI SCH ×4 (06:40→22:03)
[2020-10-23] MEDS: InsuLIN REG 1unit/0.01ml Soln (100units/ml) SC SCH ×4 (06:40→22:03)
[2020-10-23] MEDS: ALBUTEROL SULF HFA 90MCG INH 200DOSE IN PRN ×2 (07:40→19:24)
[2020-10-23] MEDS: BUDESONIDE (INHALATION) 180 MCG IH IN SCH ×2 (07:40→19:24)
[2020-10-23 09:00] VITALS: BP 146/87
[2020-10-23] MEDS: FAMOTIDINE 20 MG TAB PO SCH (09:32)
[2020-10-23] MEDS: CHOLECALCIFEROL (VITD3) 2,000 UNIT CAP/TAB PO SCH (09:32)
[2020-10-23] MEDS: APIXABAN 5 MG TAB PO SCH ×2 (09:32→22:01)
[2020-10-23] MEDS: INSULIN LANTUS (GLARGINE) 1 /0.01ml (100units/ml) SC SCH (09:42)
[2020-10-23] MEDS ORDERED: FUROSEMIDE 20 MG/2 ML VIAL IV ONE (11:45)
[2020-10-23 13:00] VITALS: BP 114/76
[2020-10-23 16:16] VITALS: BP 143/99
[2020-10-23 20:00] VITALS: BP 132/88
[2020-10-23 22:00] VITALS: BP 132/88
[2020-10-24 05:00] VITALS: BP 109/69
[2020-10-24] MEDS: ACCU-CHEK COMFORT CURVE STRIP VI SCH ×4 (06:37→21:53)
[2020-10-24] MEDS: InsuLIN REG 1unit/0.01ml Soln (100units/ml) SC SCH ×4 (06:38→22:02)
[2020-10-24] MEDS: ALBUTEROL SULF HFA 90MCG INH 200DOSE IN PRN ×3 (07:24→18:48)
[2020-10-24] MEDS: BUDESONIDE (INHALATION) 180 MCG IH IN SCH ×2 (07:24→18:48)
[2020-10-24 07:43] LABS: Calcium 9.3 mg/dL (8.5-10.1); Potassium 4.2 mmol/L (3.5-5.1)
[2020-10-24 07:45] LABS: BUN/Creatinine Ratio 18.7
[2020-10-24] MEDS: CHOLECALCIFEROL (VITD3) 2,000 UNIT CAP/TAB PO SCH (08:38)
[2020-10-24] MEDS: APIXABAN 5 MG TAB PO SCH ×2 (08:39→22:01)
[2020-10-24] MEDS: FAMOTIDINE 20 MG TAB PO SCH (08:39)
[2020-10-24 09:00] VITALS: BP 135/89
[2020-10-24] MEDS: INSULIN LANTUS (GLARGINE) 1 /0.01ml (100units/ml) SC SCH (11:05)
[2020-10-24 13:00] VITALS: BP 127/87
[2020-10-24 17:00] VITALS: BP 124/84
[2020-10-24] MEDS ORDERED: levoFLOXacin 500 MG TAB PO ONE (18:15)
[2020-10-24 22:00] VITALS: BP 137/94
[2020-10-25 05:19] VITALS: BP 123/86
[2020-10-25] MEDS: ACCU-CHEK COMFORT CURVE STRIP VI SCH ×2 (06:28→11:06)
[2020-10-25] MEDS: InsuLIN REG 1unit/0.01ml Soln (100units/ml) SC SCH ×2 (06:28→11:13)
[2020-10-25] MEDS: BUDESONIDE (INHALATION) 180 MCG IH IN SCH (06:50)
[2020-10-25] MEDS: ALBUTEROL SULF HFA 90MCG INH 200DOSE IN PRN (06:50)
[2020-10-25] MEDS: CHOLECALCIFEROL (VITD3) 2,000 UNIT CAP/TAB PO SCH (08:36)
[2020-10-25] MEDS: APIXABAN 5 MG TAB PO SCH (08:36)
[2020-10-25] MEDS: FAMOTIDINE 20 MG TAB PO SCH (08:36)
[2020-10-25 09:00] VITALS: BP 106/72
[2020-10-25 09:06] VITALS: BP 128/84
[2020-10-25] MEDS ORDERED: levoFLOXacin 500 MG TAB PO SCH (10:00)
[2020-10-25] MEDS ORDERED: INSUINJ18 SC ×2 (10:54)
[2020-10-25] MEDS ORDERED: INSREG3 INJ (10:56)
[2020-10-25] MEDS: INSULIN LANTUS (GLARGINE) 1 /0.01ml (100units/ml) SC SCH (11:13)
[2020-10-25 13:00] VITALS: BP 115/73
[2020-10-25] MEDS ORDERED: LEVO-28 PO (14:14)
[2020-10-25] MEDS ORDERED: CHOL1CAP47 PO (14:14)
[2020-10-25] MEDS ORDERED: LOSA25TA38 PO (14:15)
[2020-10-25] MEDS ORDERED: ATOR40TA52 PO (14:18)
[2020-10-25 15:08] VITALS: BP 115/73
== END 2020-10-25 17:11 | disposition home or self-care (01) | DRG 137 ==
LOC: ER 09:36 → TELE 09:37 → TELE-WESTW 17:08
PROVIDERS: ADMIT Nurse Practitioner Acute Care; ATTEND Internal Medicine
DX: U07.1 COVID-19 (principal); J96.01 Acute respiratory failure with hypoxia; J12.82 Pneumonia due to coronavirus disease 2019; E11.65 Type 2 diabetes mellitus with hyperglycemia; I10 Essential (primary) hypertension; Z79.01 Long term (current) use of anticoagulants; Z79.4 Long term (current) use of insulin; Z87.891 Personal history of nicotine dependence; Z88.6 Allergy status to analgesic agent; I27.82 Chronic pulmonary embolism; E44.1 Mild protein-calorie malnutrition
CPT/HCPCS: 36415; 36600; 71045; 80048; 80053; 81001; 82728; 82805; 82962; 83605; 83615; 83735; 84484; 85025; 86141; 87040; 87081; 87426; 93005; 94640; 96374; 96375; G0378; J1815; J1956

== ENCOUNTER 2025-06-30 10:01 | Day surgery (SDC) | payer MEDICAID ==
[2025-06-27 10:14] LABS: Hematocrit 40.0 % (41.0-53.0); Hemoglobin 13.4 g/dL (13.5-17.5); Mean Corpuscular Hemoglobin 30.6 pg (28.0-32.0); Mean Corpuscular Volume 91.3 fL (80.0-100.0); Nucleated Red Blood Cells % 0.1 %
[2025-06-27 10:29] LABS: INR 0.94 (0.9-1.15); Partial Thromboplastin Time 26.8 SEC (24.5-34.5); Prothrombin Time 10.0 sec (9.3-11.8)
[2025-06-27 10:36] LABS: Urine Protein, UAD Negative (Negative)
[2025-06-27 10:37] LABS: Alanine Aminotransferase 17 U/L (7-40); Alkaline Phosphatase 74 U/L (46-116); Anion Gap 5 (5-15); BUN/Creatinine Ratio 12.6 (10.0-20.0); Calcium 9.8 mg/dL (8.7-10.4); Chloride 104 mmol/L (98-107); Glucose 102 mg/dL (74-106); Sodium 141 mmol/L (136-145); Total Protein 7.9 g/dL (5.7-8.2)
[2025-06-27 10:38] LABS: Albumin 4.3 g/dL (3.2-4.8); Bilirubin, Total 0.5 mg/dL (0.2-1.0)
[2025-06-27 10:39] LABS: Blood Urea Nitrogen 23 mg/dL (9-23); Carbon Dioxide 32 mmol/L (20-31); Potassium 5.2 mmol/L (3.5-5.1)
[~2025-06-30] VITALS: Ht 182.9 cm; Wt 122.5 kg
[~2025-06-30 10:01] MED LIST: CHOL1CAP47 PO; INSREG3 INJ; INSUINJ18 SC
[2025-06-30] MEDS ORDERED: KETAMINE 50mg/ML 1ml syringe ONE (11:12)
[2025-06-30] MEDS ORDERED: MEPERIDINE HCL (25 MG/ML) 1ML VIAL ONE (11:13)
[2025-06-30] MEDS ORDERED: METOCLOPRAMIDE HCL 5MG/ml INJ 2ml VIAL IV PRN (11:15)
[2025-06-30] MEDS ORDERED: HYDROmorphone HCL 2 MG/ML VL/or syr IV PRN (11:15)
[2025-06-30] MEDS ORDERED: ROCURONIUM 10MG/ML 10ML VIAL IV ONE (11:15)
[2025-06-30] MEDS ORDERED: MORPHINE SULFATE 4 MG/ML SYR/VIAL IV PRN (11:15)
[2025-06-30] MEDS ORDERED: ONDANSETRON HCL 4 MG/2 ML VIAL ONE (11:15)
[2025-06-30] MEDS ORDERED: MIDAZOLAM HCL 2MG/2ML 2ml VIAL (1mg/ml) ONE (11:15)
[2025-06-30] MEDS ORDERED: SODIUM CHLORIDE LOCK 20 ML ONE (11:15)
[2025-06-30] MEDS ORDERED: LIDOCAINE 1% INJ PF 5ML AMP ONE (11:15)
[2025-06-30] MEDS ORDERED: ACCU-CHEK COMFORT CURVE STRIP VI ONE (11:15)
[2025-06-30] MEDS ORDERED: fentaNYL CITRATE 5 ML ONE (11:15)
[2025-06-30] MEDS ORDERED: PROPOFOL 10 MG/ML 20 ML IV ONE (11:15)
[2025-06-30] MEDS: BUPIVACAINE HCL 0.25% P/F 10 ML VIAL ONE (12:23)
[2025-06-30] MEDS: LIDOCAINE W/ EPINEPHRINE 1% 20ML VIAL ONE (12:23)
[2025-06-30 12:30] VITALS: PULSE 96; RESP 14; TEMP 97.9; O2SAT 100
[2025-06-30] MEDS: ceFAZolin 2 GM/D5W50ml 50 ML IV ONE (12:55)
[2025-06-30] MEDS: MORPHINE SULFATE INJ 2 MG/ml SYRG IV PRN (13:04)
[2025-06-30 13:22] VITALS: PULSE 90; RESP 12; O2SAT 95
[2025-06-30] MEDS: HYDROmorphone HCL 2 MG/ML VL/or syr IV PRN (13:22)
--- NOTE | 2025-06-30 13:47 | DVHOP ---
DATE OF SURGERY: 06/30/2025 PREOPERATIVE DIAGNOSES: * Large right inguinal hernia. * Morbid obesity. POSTOPERATIVE DIAGNOSES: * Large right inguinal hernia. * Morbid obesity. SURGEON: Td Diallo MD BOILER ENGINEER: Carlos Cabral NP ANESTHESIA: General endotracheal. PROCEDURE: Repair of right inguinal hernia. DESCRIPTION OF PROCEDURE: Under general endotracheal anesthesia with the patient's skin was prepped and draped and infiltrated with 0.25% Marcaine and 0.5% Xylocaine into the proposed incision site. The incision was made at the visible palpable bulge in the right groin. The incision was deepened with electrocautery, divided, abundant adipose tissue down to Isadora's fascia. Isadora's fascia was divided and the tissue swept down onto the fibers of the external oblique aponeurosis. The external ring was opened for approximately 1.5-2 cm length. The ilioinguinal nerve was identified, reflected laterally, and protected. The cord structures were then encircled with a [place] drain with a great deal of difficulty due to the patient's morbid obesity, chronicity of the herniation, and the size of the hernia; however, the encirclement of the cord structures was accomplished and the sac of the hernia was identified, grasped with hemostats, and opened, digitally explored. It contained a sliding component of intraperitoneal fat, which was mobilized and reduced into the peritoneal cavity and subsequently the hernia sac was swept clean of cremasteric fibers and from the cord structures themselves. The peritoneal tissues were then twisted on themselves, traced high into the internal inguinal ring when they were doubly ligated with a soluble suture and the excess peritoneal was excised and submitted for histopathologic examination. Subsequently, Baby Weott was used in the internal inguinal rings to expose the hernia floor, which was repaired using nonabsorbable sutures through conjoint tendon and reflecting part of Poupart's fascia. The approximation of these two structures was continued laterally until it accommodated examining fingertip, at which point the repair was completed. The wound was irrigated. The testicle returned back into its normal anatomical position. Ilioinguinal nerve was returned into its normal anatomical position. External oblique aponeurosis was approximated using Monocryl suture. Subsequently, the wound was irrigated one more time. Hemostasis was accomplished and found to be complete. At the termination of the procedure, there was no evidence of bleeding from either the hernia site or from the depth of the scrotum. Closure accomplished using Monocryl sutures, Dermabond glue, and Steri-Strips. The patient remained stable throughout the procedure, left the operating room following an accurate needle and sponge counts. No members of the family were present in the waiting room and no one answered on the phone number given. MD SHAR Dukes/CRISTEL TID: [id number] RECEIPT: [id number]
[2025-06-30] MEDS: ACETAMINOPHEN IV 1000 MG/100ML (10MG/ML) IV ONE (13:56)
[2025-06-30] MEDS: hydrALAZINE HCL 20 MG/ML VL IV ONE (13:57)
[2025-06-30 14:20] VITALS: BP 162/92; PULSE 91; RESP 13; O2SAT 95
== END 2025-06-30 14:35 | disposition home or self-care (01) ==
LOC: SUR 10:01
PROVIDERS: ATTEND Surgery
DX: K40.90 Unilateral inguinal hernia, without obstruction or gangrene, not specified as recurrent (principal); E66.01 Morbid (severe) obesity due to excess calories; E11.22 Type 2 diabetes mellitus with diabetic chronic kidney disease; N18.30 Chronic kidney disease, stage 3 unspecified; Z83.3 Family history of diabetes mellitus; Z88.6 Allergy status to analgesic agent; Z79.4 Long term (current) use of insulin; Z79.899 Other long term (current) drug therapy; Z98.890 Other specified postprocedural states; Z68.37 Body mass index [BMI] 37.0-37.9, adult
CPT/HCPCS: 36415; 49505; 80053; 81001; 82962; 85025; 85610; 85730; 88302; J0360; J0690; J1171; J2175; J2250; J2270; J2405; J2704; J3010; J3490; J0131